=== PATIENT | female | born 1960 | race Caucasian/White ===

== ENCOUNTER → 2024-06-19 14:11 | Outpatient (REF) | payer BC, SELFPAY | LOC: HWRAD 14:11 | PROVIDERS: ATTENDING PHYSICIAN Family Medicine | DX: M25.511 Pain in right shoulder (principal); M79.646 Pain in unspecified finger(s) | CPT/HCPCS: 73030; 73130 ==

== ENCOUNTER → 2024-06-26 13:12 | Outpatient (REF) | payer BC, SELFPAY | LOC: WDC 13:12 | PROVIDERS: ATTENDING PHYSICIAN Family Medicine | DX: Z12.31 Encounter for screening mammogram for malignant neoplasm of breast (principal) | CPT/HCPCS: 77063; 77067 ==